=== PATIENT | female | born 1980 | race Caucasian/White ===

== ENCOUNTER 2019-05-07 01:30 | Emergency (ER) | payer SELFPAY ==
[2019-05-07] MEDS ORDERED: ONDANSETRON HCL 4 MG TAB.RAPDIS PO ONE (01:47)
[2019-05-07 01:48] VITALS: BP 142/90
--- NOTE | 2019-05-07 01:50 | ED Physician Documentation ---
General Adult - HISTORIAN Historian: patient - HPI Chief Complaint: General Adult (Sunburn) Additional Information: Patient is a 38-year old female that sat out at [employer] yesterday and got a little sunburned. States that it started yesterday afternoon. She is experiencing some nausea with no vomiting so she decided to be seen. Onset: hours Timing: better Severity: mild Modifying Factors: sunburn - ROS CONST: no problems EYES/ENT: none CVS/RESP: none GI/: nausea. denies: vomiting MS/SKIN/LYMPH: none NEURO/PSYCH: denies: headache - PAST HX Past History: none Other History: other (Gerd) Surgeries/Procedures: other Immunizations: UTD Allergies/Adverse Reactions: Allergies Allergy/AdvReac Type Severity Reaction Status Date / Time acetaminophen [From Percocet] Allergy Verified 05/07/19 01:43 erythromycin base Allergy Verified 05/07/19 01:43 [From E-Mycin] metoclopramide [From Reglan] Allergy Verified 05/07/19 01:43 oxycodone [From Percocet] Allergy Verified 05/07/19 01:43 Penicillins Allergy Verified 05/07/19 01:43 prochlorperazine Allergy Verified 05/07/19 01:43 [From Compazine] Home Medications: Ambulatory Orders Medication Instructions Recorded Omeprazole 20 mg PO DAILY 05/07/19 - SOCIAL HX Smoking History: non-smoker Alcohol Use: none Drug Use: none - FAMILY HX Family History: No - REVIEWED ASSESSMENTS Nursing Assessment Reviewed: Yes Vitals Reviewed: Yes ED Results Lab/Radiology - Orders Orders: ED Orders Category Date Time Status Ondansetron HCl Rapdis [Zofran Odt] Med 05/07/19 01:47 Once 4 mg PO NOW ONE General Adult Physical Exam - PHYSICAL EXAM GENERAL APPEARANCE: no distress EENT: eye inspection normal, ENT inspection normal, UMBERTO NECK: normal inspection, supple RESPIRATORY: breath sounds normal CVS: heart sounds normal ABDOMEN: normal bowel sounds BACK: normal inspection SKIN: warm/dry, normal color EXTREMITIES: non-tender, normal range of motion NEURO: oriented X3, CN's nml as tested, motor nml, sensation nml, mood/affect nml, cognition normal Discharge Clincal Impression: Superficial sunburn Additional Instructions: Use Aloe Vera Alternate Tylenol and Ibuprofen as needed for discomfort Increase water intake Follow up with PCP next week as needed Condition: Good Disposition: 01 HOME, SELF-CARE Decision to Admit: NO Decision Time: 02:30
== END 2019-05-07 01:55 | disposition home or self-care (01) ==
LOC: ED 01:30
DX: L55.0 Sunburn of first degree (principal)
CPT/HCPCS: 99282; 99283; A9270